=== PATIENT | female | born 1995 | race Caucasian/White ===

== ENCOUNTER 2017-04-08 09:54 | Emergency (ER) | payer MEDICAID ==
[~2017-04-08] VITALS: Ht 152.4 cm; Wt 57.0 kg
[2017-04-08 09:57] VITALS: Ht 152.4 cm; Wt 57.0 kg
[2017-04-08] MEDS ORDERED: KETOROLAC 30 MG INJ IV STA (10:53)
[2017-04-08] MEDS ORDERED: CEFTRIAXONE 1 GM/50 ML (PMX) 50 ML IVPB STA (10:53)
[2017-04-08] MEDS ORDERED: DEXAMETHASONE 10 MG/ML 1 ML INJ IV ONE (11:00)
[2017-04-08 11:33] LABS: ADD SCAN DIFF NO
[2017-04-08 11:41] LABS: BASOPHILS % 0.5 % (0.0-2.0); EOSINOPHILS # 0.1 10^3/ul (0.0-0.5); EOSINOPHILS % 0.8 % (0.0-7.0); HEMATOCRIT 40.9 % (37.0-47.0); HEMOGLOBIN 13.3 g/dl (12.0-16.0); LYMPHOCYTES # 1.4 10^3/ul (0.8-2.9); LYMPHOCYTES % 16.1 % (15.0-51.0); MEAN CORPUSCULAR HEMOGLOBIN 28.9 pg (29.0-33.0); MEAN CORPUSCULAR HGB CONC 32.5 g/dl (32.0-37.0); MEAN CORPUSCULAR VOLUME 88.9 fl (82.0-101.0); MEAN PLATELET VOLUME 9.7 fl (7.4-10.4); MONOCYTE # 0.8 10^3/ul (0.3-0.9); MONOCYTES % 9.4 % (0.0-11.0); NEUTROPHIL # 6.1 10^3/ul (1.6-7.5); NEUTROPHILS % 72.8 % (39.0-77.0); PLATELET COUNT 317 10^3/UL (140-415); RED CELL DISTRIBUTION WIDTH 13.9 % (11.5-14.5); WHITE BLOOD COUNT 8.4 10^3/ul (4.8-10.8)
[2017-04-08 12:00] LABS: ALBUMIN/GLOBULIN RATIO 1.47; BILIRUBIN,INDIRECT 0.4 mg/dl (0-1.1); BILIRUBIN,TOTAL 0.4 mg/dl (0.2-1.3); CALCIUM 9.6 mg/dl (8.4-10.2); CREATININE 0.69 mg/dl (0.44-1.00); TOTAL PROTEIN 8.4 g/dl (6.1-8.1)
[2017-04-08] MEDS ORDERED: AMOX1TAB10 PO (12:37)
[2017-04-08] MEDS ORDERED: ACET1TAB40 PO (12:37)
[2017-04-08] MEDS ORDERED: IBUP-1542 PO (12:37)
--- NOTE | 2017-04-08 12:42 | ERD ---
ER Documentation Chief Complaint Date/Time DATE: 04/08/17 TIME: 12:39 Chief Complaint FLU WITH BODY ACHES, ST HPI 21-year-old female presents with a one-week history of sore throat, difficulty swallowing, body aches and she is low-grade fever triage. She has not been seen for this yet. ROS All systems reviewed and are negative except as per history of present illness. Medications Home Meds Active Scripts Ibuprofen* (Motrin*) 600 Mg Tab, 600 MG PO Q6, #15 TAB Prov:SLY RIVERO MD 04/08/17 Acetaminophen with Codeine (Acetaminophen-Cod #3 Tablet) 1 Each Tablet, 1 TAB PO Q6H Y for PAIN, #10 TAB Prov:SLY RIVERO MD 04/08/17 Amoxicillin/Potassium Clav (Amox-Clav 875-125 mg Tablet) 875-125 mg Tab, 1 TAB PO BID for 10 Days, #14 TAB Prov:SLY RIVERO MD 04/08/17 PMhx/Soc Medical and Surgical Hx: pt denies Medical Hx, pt denies Surgical Hx Hx Alcohol Use: No Hx Substance Use: No Physical Exam Vitals Vital Signs Date Time Temp Pulse Resp B/P Pulse Ox O2 Delivery O2 Flow Rate FiO2 04/08/17 09:57 100.8 118 20 128/91 99 Physical Exam Const: [], no apparent distress a mild hot potato voice Head: Atraumatic Eyes: Normal Conjunctiva ENT: Normal External Ears, Nose and Mouth. Tonsils 3+ bilaterally with slight bulging of the right peritonsillar area. Uvula is midline. Airway patent. Tender anterior cervical lymphadenitis per Neck: Full range of motion..~ No meningismus. Resp: Clear to auscultation bilaterally Cardio: Regular rate and rhythm, no murmurs Abd: Soft, non tender, non distended. Normal bowel sounds Skin: No petechiae or rashes Back: No midline or flank tenderness Ext: No cyanosis, or edema Neur: Awake and alert Psych: Normal Mood and Affect Result Diagram: 04/08/17 1115 04/08/17 1115 Results 24 hrs Laboratory Tests Test 04/08/17 11:15 White Blood Count 8.410^3/ul Red Blood Count 4.6010^6/ul Hemoglobin 13.3g/dl Hematocrit 40.9% Mean Corpuscular Volume 88.9fl Mean Corpuscular Hemoglobin 28.9pg Mean Corpuscular Hemoglobin Concent 32.5g/dl Red Cell Distribution Width 13.9% Platelet Count 74707^3/UL Mean Platelet Volume 9.7fl Neutrophils % 72.8% Lymphocytes % 16.1% Monocytes % 9.4% Eosinophils % 0.8% Basophils % 0.5% Nucleated Red Blood Cells % 0.0/100WBC Neutrophils # 6.110^3/ul Lymphocytes # 1.410^3/ul Monocytes # 0.810^3/ul Eosinophils # 0.110^3/ul Basophils # 0.010^3/ul Nucleated Red Blood Cells # 0.010^3/ul Sodium Level 141mmol/L Potassium Level 4.0mmol/L Chloride Level 102mmol/L Carbon Dioxide Level 28mmol/L Anion Gap 15 Blood Urea Nitrogen 10mg/dl Creatinine 0.69mg/dl Glucose Level 91mg/dl Calcium Level 9.6mg/dl Total Bilirubin 0.4mg/dl Direct Bilirubin 0.00mg/dl Indirect Bilirubin 0.4mg/dl Aspartate Amino Transf (AST/SGOT) 21IU/L Alanine Aminotransferase (ALT/SGPT) 33IU/L Alkaline Phosphatase 68IU/L Total Protein 8.4g/dl Albumin 5.0g/dl Globulin 3.40g/dl Albumin/Globulin Ratio 1.47 Lipase 40U/L Current Medications Medications (Trade) Dose Ordered Sig/Tami Route PRN Reason Start Time Stop Time Status Last Admin Dose Admin Ketorolac Tromethamine 30 mg 30 mg ONCE STAT IV 04/08/17 10:53 04/08/17 10:55 DC 04/08/17 11:35 Ceftriaxone Sodium (Rocephin) 50 ml @ 100 mls/hr ONCE STAT IVPB 04/08/17 10:53 04/08/17 11:22 DC 04/08/17 11:36 Dexamethasone (Decadron) 10 mg ONCE ONCE IV 04/08/17 11:00 04/08/17 11:01 DC 04/08/17 11:35 Procedures/MDM Patient presents with signs and symptoms of acute pharyngitis signs of very mild early peritonsillar abscess. There is no current signs of abscess to be drained and uvula is midline. IV was obtained given the duration of symptoms the patient was given Rocephin 1 g IV, Decadron 10 mg IV and Toradol 30 mg IV and 1 L normal saline IV. Patient will be treated with Augmentin at home, Tylenol 3 and ibuprofen instructions for recheck tomorrow for evaluation for abscess to be drained. There is no current evidence of any airway obstruction, sepsis, respiratory distress. The patient was stable with no new complaints during the ER course. Clinically, there is no current evidence to suggest meningitis, sepsis, acute abdomen, pneumonia, acute coronary syndrome, pulmonary embolism, or any other emergent condition appearing to require further evaluation or hospitalization. The patient should certainly return for any new or worsening symptoms per the aftercare instructions. They should otherwise follow-up with her primary care doctor for reevaluation this week. Departure Diagnosis: Primary Impression: Peritonsillar abscess Condition: Stable Patient Instructions: Peritonsillar Infection Abx Only, No I And D Additional Instructions: CHEQUE MANANA PARA MAS DOLOR, PROBLEMAS CON RESPIRANDO, PARA CHEQUE PARA ABSCESSO. SLY RIVERO MD Apr 08, 2017 12:41
== END 2017-04-08 13:03 | disposition home or self-care (01) ==
LOC: FTE 09:54
DX: J36 Peritonsillar abscess (principal)
CPT/HCPCS: 36415; 80053; 83690; 85025; 96374; 96375; J0696; J1100; J1885; Z7502

== ENCOUNTER 2017-12-11 02:24 | Emergency (ER) | END 2017-12-11 05:08 | disposition home or self-care (01) ==

== ENCOUNTER 2018-02-02 17:42 | Emergency (ER) | END 2018-02-03 00:02 | disposition home or self-care (01) ==

== ENCOUNTER 2018-02-04 12:52 | Emergency (ER) | END 2018-02-04 16:25 | disposition home or self-care (01) ==

== ENCOUNTER 2018-11-12 21:18 | Emergency (ER) | payer MEDICAID, OTHER ==
[~2018-11-12] VITALS: Ht 157.5 cm; Wt 68.4 kg
[~2018-11-12 21:18] MED LIST: ACET1TAB40 PO; ACET500C5 PO; ALBU8.5H8 INH; AMOX1TAB10 PO; CETI10CA PO; CIPR-193 PO; GUAI120S26 PO; IBUP-1542 PO; NAPR-985 PO; ONDA4TAB8 PO
[2018-11-12 21:29] VITALS: Ht 157.5 cm; Wt 68.4 kg
--- NOTE | 2018-11-12 21:59 | ERD ---
ER Documentation Chief Complaint Chief Complaint R sided SPEARS x 15 days HPI This is a 22-year-old female who presents emergency department with complaints of right-sided headache for about 2 weeks. Also complains of light sensitivity. LMP: Stated that it was February 2018. Also stated that she has an IUD. A0. Denies that this is the worst headache of her life, head injury, loss of consciousness, neck pain, neck stiffness, difficulty swallowing, difficulty breathing lying flat, shoulder pain, chest pain, back pain, abdominal pain, vomiting, constipation, diarrhea, urinary symptoms, or possibly being , trauma, injury, falls, recent travel, recent long travel, recent exposure to any illness, recent antibiotic use in the last 3 months, fever, chills, seizures. Past medical history: Wilson's palsy 6 years ago. Surgical history denies. Social: Denies smoking, use of alcoholic beverages, she will drugs. ROS All systems reviewed and are negative except as per history of present illness. Medications Home Meds Active Scripts Acetamin/Butalbital/Caffeine* (Fioricet*) [id number] Tab, 1 TAB PO Q6H PRN for PAIN LEVEL 6-10, #30 TAB Prov:KEISHA GARCIA 11/12/18 Ibuprofen* (Motrin*) 800 Mg Tab, 800 MG PO Q6H PRN for PAIN LEVEL 1-5, #30 TAB Prov:KEISHA GARCIA F 11/12/18 Diphenhydramine Hcl* (Benadryl*) 25 Mg Cap, 25 MG PO Q6 PRN for ITCHING/RASH, #30 TAB Prov:KEISHA GARCIA 11/12/18 Metoclopramide* (Reglan*) 10 Mg Tablet, 10 MG PO Q6 PRN for NAUSEA AND/OR VOMITING, #20 TAB Prov:KEISHA GARCIA 11/12/18 Ciprofloxacin Hcl* (Ciprofloxacin Hcl*) 250 Mg Tablet, 250 MG PO BID for 5 Days, #10 TAB Prov:CONOR QUINTANA MD 02/04/18 Acetaminophen* (Tylophen*) 500 Mg Capsule, 1 CAP PO Q6H PRN for PAIN AND OR ELEVATED TEMP, #30 CAP Prov:IMANI GARCIA PA-C 02/02/18 Naproxen* (Naprosyn*) 500 Mg Tablet, 500 MG PO BID PRN for PAIN AND/OR INFLAMMATION, #30 TAB Prov:IMANI GARCIA PA-C 02/02/18 Ondansetron Hcl* (Zofran*) 4 Mg Tablet, 4 MG PO Q6H for NAUSEA AND/OR VOMITING, #30 TAB Prov:IMANI GARCIA PA-C 02/02/18 Acetaminophen* (Tylophen*) 500 Mg Capsule, 1 CAP PO Q6H PRN for PAIN AND OR ELEVATED TEMP, #20 CAP Prov:SERAFIN CHARLES NP 12/11/17 Ibuprofen* (Motrin*) 600 Mg Tab, 600 MG PO Q6H PRN for PAIN AND OR ELEVATED TEMP, #30 TAB Prov:SERAFIN CHARLES NP 12/11/17 Cetirizine Hcl* (Zyrtec*) 10 Mg Capsule, 10 MG PO DAILY, #10 TAB.CHEW Prov:SERAFIN CHARLES NP 12/11/17 [id number] Hb* (Guaifenesin* DM Syrup) 120 Ml Syrup, 10 ML PO Q4H PRN for COUGH, #120 ML Prov:SERAFIN CHARLES NP 12/11/17 Albuterol Sulfate* (Proair HFA*) 8.5 Gm Hfa.aer.ad, 2 PUFF INH Q4H PRN for WHEEZING AND SOB, #1 INHALER Prov:SERAFIN CHARLES NP 12/11/17 Ibuprofen* (Motrin*) 600 Mg Tab, 600 MG PO Q6, #15 TAB Prov:SLY RIVERO MD 04/08/17 Acetaminophen with Codeine (Acetaminophen-Cod #3 Tablet) 1 Each Tablet, 1 TAB PO Q6H PRN for PAIN, #10 TAB Prov:SLY RIVERO MD 04/08/17 Amoxicillin/Potassium Clav (Amox-Clav 875-125 mg Tablet) 875-125 mg Tab, 1 TAB PO BID for 10 Days, #14 TAB Prov:SLY RIVERO MD 04/08/17 Allergies Allergies: Coded Allergies: No Known Drug Allergies (Verified Allergy, Unknown, 12/11/17) PMhx/Soc History of Surgery: No Anesthesia Reaction: No Hx Neurological Disorder: No Hx Respiratory Disorders: No Hx Cardiac Disorders: No Hx Psychiatric Problems: No Hx Miscellaneous Medical Probl: Yes (wilson's palsy 6 years ago) Hx Alcohol Use: No Hx Substance Use: No Hx Tobacco Use: No Smoking Status: Never smoker Physical Exam Vitals Vital Signs Date Temp Pulse Resp B/P (MAP) Pulse Ox O2 O2 Flow FiO2 Time Delivery Rate 11/12/18 99.0 91 20 119/66 99 Room Air 23:56 (83) 11/12/18 97.7 85 18 114/62 98 21:29 (79) Physical Exam Const: No acute distress Head: Atraumatic. Scalp has no lesion/vesicular lesions. No signs of trauma. Eyes: Normal Conjunctiva. There is no visual field loss. Has good eye movement. ENT: Normal External Ears, Nose and Mouth. Bilateral ears: TMs are not erythematous. No bleeding. No discharge with no mastoid tenderness. No hearing loss. Nose: Midline. There is right frontal and maxillary sinus tenderness palpation. Throat: Uvula is midline and nondisplaced. Tonsils are +1 bilaterally without redness without exudates. Tolerating secretions with patent airway. Speaks full and clear sentences. Neck: Full range of motion. No meningismus. No neck stiffness. No nuchal rigidity. No signs of meningeal irritation. Resp: Clear to auscultation bilaterally. Cardio: Regular rate and rhythm, no murmurs Abd: Soft, non tender, non distended. Normal bowel sounds Skin: No petechiae or rashes Back: No midline or flank tenderness Ext: No cyanosis, or edema Neur: Awake and alert. No obvious facial droop. Equal business sales consultant. Equal strength on bilateral upper and lower extremities. Able to bear weight on left lower extremity. Able to bear weight on right lower extremity. Sensation is intact. Romberg test is negative. Ambulatory with steady gait. No neurological deficit. Confirmed with that there was no new neurological changes and or weakness. Psych: Normal Mood and Affect Results 24 hrs Laboratory Tests Test 11/12/18 22:07 11/12/18 22:56 POC Beta HCG, Qualitative NEGATIVE Urine Color YELLOW Urine Clarity CLEAR Urine pH 7.0 Urine Specific [place] 1.023 Urine Ketones NEGATIVE mg/dL Urine Nitrite NEGATIVE mg/dL Urine Bilirubin NEGATIVE mg/dL Urine Urobilinogen NEGATIVE mg/dL Urine Leukocyte Esterase NEGATIVE Anthony/ul Urine Microscopic RBC 8 /HPF Urine Microscopic WBC 0 /HPF Urine Squamous Epithelial Cells FEW /HPF Urine Hemoglobin 1+ mg/dL Urine Glucose NEGATIVE mg/dL Urine Total Protein NEGATIVE mg/dl Current Medications Medications Dose Sig/Tami Start Time Status Last (Trade) Ordered Route PRN Stop Time Admin Dose Reason Admin Sodium 1,000 ml @ Q1H ONCE 11/12/18 DC 11/12/18 Chloride 1,000 mls/hr IV 22:00 22:04 11/12/18 22:59 10 mg ONCE ONCE 11/12/18 DC 11/12/18 Metoclopramid IV 22:00 22:05 e HCl 11/12/18 22:01 (Reglan) 25 mg ONCE ONCE 11/12/18 DC 11/12/18 Diphenhydrami IV 22:00 22:05 ne HCl 11/12/18 22:01 (Benadryl) Procedures/MDM Diagnostic tests: POC urine : Negative. Urinalysis: Negative. Treatment: Saline lock. Normal saline IV bolus. Benadryl IV. Reglan IV. Re-evaluation: No episode of emesis in the emergency department. Denies headache. No neurological deficits. Stated that she feels much better at this time. Ambulatory with steady gait. Differential diagnosis I have low suspicion for subarachnoid hemorrhage, stroke, Wilson's palsy, cerebral edema, shingles. Final diagnosis: Viral sinusitis. Headache. Migraine. Prescription: Reglan. Fioricet. Motrin. Follow-up with PCP in the next 24-48 hours. PCP to refer patient to neurologist in the next 3-4 days. Come back here in the emergency department for any new symptoms or any worsening symptoms. All questions and concerns were answered. Patient and family members verbalized understanding and agreed with plan of care. Hemodynamically stable on discharge. Departure Diagnosis: Primary Impression: Headache Additional Impressions: Migraine Viral sinusitis Condition: Stable Additional Instructions: Follow-up with PCP in the next 24-48 hours. PCP to refer patient to neurologist in the next 3-4 days. Come back here in the emergency department for any new symptoms or any worsening symptoms. KEISHA GARCIA Nov 12, 2018 21:59
[2018-11-12] MEDS ORDERED: SOD CHLORIDE 0.9% 1,000 ML IV ONE (22:00)
[2018-11-12] MEDS ORDERED: DIPHENHYDRAMINE 50 MG INJ IV ONE (22:00)
[2018-11-12] MEDS ORDERED: METOCLOPRAMIDE 10 MG INJ IV ONE (22:00)
[2018-11-12] MEDS ORDERED: BEN25 PO (23:35)
[2018-11-12] MEDS ORDERED: METO10TA92 PO (23:35)
[2018-11-12] MEDS ORDERED: IBUP800T48 PO (23:36)
[2018-11-12] MEDS ORDERED: FIORICET PO (23:37)
[2018-11-12 23:56] VITALS: BP 119/66; PULSE 91; RESP 20
== END 2018-11-12 23:57 | disposition home or self-care (01) ==
LOC: FTE 21:18
DX: G43.909 Migraine, unspecified, not intractable, without status migrainosus (principal); J32.9 Chronic sinusitis, unspecified
CPT/HCPCS: 81001; 81025; 87086; 96374; 96375; J1200; J2765; J7030; Z7502